=== PATIENT | female | born 1955 | race American Indian/Alaskan Native ===

== ENCOUNTER 2018-09-05 12:00 | Inpatient (IN) | payer MEDICARE, MEDICAID ==
[2018-08-30 10:15] LABS: EOSINOPHILS # (AUTO) 0.3 X10'3 (0-0.9); LYMPHOCYTES # (AUTO) 2.5 X10'3 (1.1-4.8); MEAN CORPUSCULAR VOLUME 88.8 FL (78-98); MONOCYTES # (AUTO) 1.1 X10'3 (0-0.9); PRE OP HEMOGLOBIN 14.5 g/dL (12.0-16.0)
[2018-08-30 10:16] LABS: BASOPHILS % (AUTO) 0.6 % (0-1); EOSINOPHILS % (AUTO) 3.8 % (0-6); LYMPHOCYTES % (AUTO) 32.5 % (21-51); MEAN CORPUSCULAR HEMOGLOBIN 29.5 PG (27.0-31.0); MEAN CORPUSCULAR HGB CONC 33.2 g/dL (33.0-36.5); MEAN PLATELET VOLUME 8.4 FL (7.4-10.4); MONOCYTES % (AUTO) 13.8 % (2-12); NEUTROPHILS # (AUTO) 3.8 X10'3 (1.8-7.7); NEUTROPHILS % (AUTO) 49.3 % (42-75); PRE OP HEMATOCRIT 43.7 % (35.0-45.0); PRE OP PLATELET COUNT 335 X10'3 (140-440); RED BLOOD COUNT 4.92 X10'6 (4.20-5.60); RED CELL DISTRIBUTION WIDTH 16.1 % (11.5-14.5)
[2018-08-30 10:32] LABS: HEMOGLOBIN A1C 6.3 % (4.5-6.2)
[2018-08-30 10:38] LABS: PRE OP PROTIME 10.2 SECONDS (9.0-12.0)
[2018-08-30 10:47] LABS: ALBUMIN 3.1 G/DL (3.4-5.0); ALBUMIN/GLOBULIN RATIO 0.8 (1.1-1.5); ALKALINE PHOSPHATASE 71 IU/L (46-116); BLOOD UREA NITROGEN 22 MG/DL (7-18); BUN/CREATININE RATIO 26.5 (6.6-38.0); CALCIUM 8.8 MG/DL (8.5-10.1); CHLORIDE 105 MMOL/L (99-107); CREATININE 0.83 MG/DL (0.40-0.90); PRE OP ALT 25 U/L (30-65); PRE OP ANION GAP 9 (8-16); PRE OP AST 19 U/L (10-37); PRE OP BILIRUB, TOTAL 0.4 MG/DL (0.0-1.0); PRE OP GLUCOSE 112 MG/DL (70-104); PRE OP SODIUM 139 MMOL/L (135-145); TOTAL CARBON DIOXIDE 25.3 MMOL/L (24-32); TOTAL PROTEIN 7.2 G/DL (6.4-8.2); eGFR 69 ML/MIN
[2018-09-05] VITALS (20 sets, daily range): BP systolic 104–189; BP diastolic 47–82
[~2018-09-05] VITALS: Ht 160 cm; Wt 162.3 kg
[~2018-09-05 12:00] MED LIST: ALBU18HF2 INH; AMLO10TA PO; ASPI-611 PO; ATOR10TA PO; CALCIUM PO; DOXA2TAB PO; DULA0.75 SQ; FENO145T36 PO; FURO-150 PO; LEVO175T7 PO; OMEP40CA13 PO; PARO40TA PO; PIOG45TA5 PO; TOLT4CAP PO; TRAM100T28 PO; ZOLP10TA5 PO
[2018-09-05] MEDS ORDERED: albuterol 2.5 MG/3 ML nebule NEB ONE (12:45)
[2018-09-05] MEDS: dextrose 5%-normal saline 1,000 ML IV SCH (12:45)
[2018-09-05] MEDS ORDERED: scopolamine 1.5mg patch.TD72 TD ONE (12:45)
[2018-09-05] MEDS ORDERED: vancomycin inj 1,500 MG in normal saline 300ml IV soln IV ONE (12:45)
[2018-09-05] MEDS ORDERED: ringers solution, lacted 1,000 ML IV SCH ×2 (12:45→16:20)
[2018-09-05] MEDS ORDERED: famotidine 20mg tablet PO ONE (12:45)
[2018-09-05] MEDS ORDERED: fentaNYL/PF 50MCG/1 ML 2ML syringe IV ONE (12:47)
[2018-09-05] MEDS ORDERED: MIDAZolam 5mg/ml 2ml vial IV ONE (12:47)
[2018-09-05] MEDS ORDERED: ceFAZolin 1000mg inj ONE (13:39)
[2018-09-05] MEDS ORDERED: gentamicin 40 MG/1 ML inj ONE (13:39)
[2018-09-05] MEDS ORDERED: vancomycin 1,000mg inj ONE (13:39)
[2018-09-05] MEDS ORDERED: iohexol 180mg/ml 20ml inj ONE ×2 (14:10→14:17)
[2018-09-05] MEDS ORDERED: iohexol 240mg/ml 10ml vial ONE (14:17)
[2018-09-05] MEDS ORDERED: iohexol 300 MG/1 ML 50ml polymer ONE (14:17)
[2018-09-05] MEDS: LIDOcaine 1% 30ml preserv. free vial ONE ×2 (15:08→15:15)
[2018-09-05] MEDS ORDERED: proCHLORperazine 10 MG/2 ml inj IV PRN (16:20)
[2018-09-05] MEDS ORDERED: morphine 4 MG/ML inj SYRINge IV PRN ×2 (16:20)
[2018-09-05] MEDS ORDERED: ondansetron/PF 4mg/2ml inj IV PRN ×2 (16:20→17:30)
--- NOTE | 2018-09-05 17:00 | NUR ---
Received from OR via [facility] , accompanied by Anesthesiologist DR. RM and report given by Anesthesiolgist. DRSG TO LEFT CHEST CDI. PT ALERT AND ORIENTED, DENIES PAIN AND NAUSEA.
--- NOTE | 2018-09-05 17:10 | NUR ---
Received from OR via [facility] , accompanied by Anesthesiologist DR. DEAL and report given by Anesthesiolgist. ART LINE TO LEFT WRIST. PIV TO RIGHT A/C PATENT. NIPRIDE AND JAYLEN GTTS INFUSING ORDERED. DRSG TO LEFT NECK CDI W/ THANH DRAIN PRESENT. SCANT AMOUNT OF SANG DRAINAGE NOTED IN BULB. PT ALERT AND ORIENTED. NEURO CHECKS WNL. QA AUTOMATION ENGINEER EQUAL. PT DENIES PAIN AND NAUSEA. SCD'S ON. Addendum: 09/05/18 at 1928 by Heather Boyer RN OMIT , WRONG PATIENT.
--- NOTE | 2018-09-05 17:40 | NUR ---
PT READY FOR [facility] TO [facility] BUT WILL WAIT UNTIL AFTER SHIFT CHANGE TO TAKE PT TO FLOOR.
--- NOTE | 2018-09-05 19:00 | NUR ---
PT TO [facility]IA [facility]. NO BELONGINGS W/ PT. REPORT GIVEN TO [facility] RN WHO ASSUMED CARE OF PT UPON TRANSFER. BED LOW, LOCKED, RAILS UP X 2. PT ORIENTED TO ROOM AND CALL LIGHT. PT STATES HER PACER SITE IS SORE BUT REFUSED PAIN MEDICATION UNTIL AFTER SHE EATS. STATES PAIN IS TOLERABLE AND DENIES NAUSEA. DRSG TO LEFT CHEST REMAINS CDI. PT TOLERATING [place] OF [place]. HEP LOCKED IV PER MD ORDERS. PT VOIDED IN PACU X 1.
[2018-09-05] MEDS ORDERED: albuterol 2.5 MG/3 ML nebule NEB PRN (19:15)
[2018-09-05] MEDS ORDERED: traMADol 50MG tablet PO PRN (19:15)
[2018-09-05] MEDS ORDERED: zolpidem 5mg tablet PO PRN (19:15)
[2018-09-05] MEDS: calcium carbonate 500mg tablet PO SCH (20:23)
[2018-09-05] MEDS: acetaminophen w/codeine (30MG) #3 tablet PO PRN (20:29)
[2018-09-05] MEDS ORDERED: doxazosin mesylate 2mg tablet PO SCH (21:00)
[2018-09-05] MEDS ORDERED: PARoxetine 20mg tablet PO SCH (21:00)
[2018-09-05] MEDS ORDERED: atorvastatin 10mg tablet PO SCH (21:00)
[2018-09-05] MEDS ORDERED: fenofibrate 145mg tablet PO SCH (21:00)
[2018-09-06] VITALS: BP 168/67
[2018-09-06] MEDS: acetaminophen w/codeine (30MG) #3 tablet PO PRN ×2 (01:16→08:04)
[2018-09-06 02:00] VITALS: BP 128/37
[2018-09-06] MEDS: dextrose 5%-normal saline 1,000 ML IV SCH (02:05)
[2018-09-06 06:00] VITALS: BP 159/54
[2018-09-06] MEDS ORDERED: vancomycin/NS 1 GM ADD-VANTAGE 250 ML X 1 DOSE IV ONE (06:00)
--- NOTE | 2018-09-06 06:01 | NUR ---
Problems reprioritized. Patient report given, questions answered & plan of care reviewed with Steve ANGEL.
[2018-09-06] MEDS ORDERED: levoTHYROXINE 175mcg tablet PO SCH (07:00)
[2018-09-06] MEDS: calcium carbonate 500mg tablet PO SCH (07:25)
[2018-09-06] MEDS ORDERED: pantoprazole 40mg Tablet.DR PO SCH (07:30)
[2018-09-06] MEDS ORDERED: PARoxetine 20mg tablet PO SCH (08:00)
[2018-09-06] MEDS ORDERED: pioglitazone 45mg tablet PO SCH (08:00)
[2018-09-06] MEDS ORDERED: furosemide 20MG tablet PO SCH (08:00)
[2018-09-06] MEDS ORDERED: amLODIPine 5mg tablet PO SCH (08:00)
[2018-09-06] MEDS ORDERED: tolterodine 2mg SR capsule (24hr) PO SCH (08:00)
[2018-09-06] MEDS ORDERED: aspirin 81mg tab.chew PO SCH (08:30)
--- NOTE | 2018-09-06 10:05 | NUR ---
d/c education provided including all follow up and medications; all questions answered. pt removed from cardiac monitoring and IV removed; IV intact. pt wheeled downstairs with all belongings.
[2018-09-07] MEDS ORDERED: LEVO750T21 PO (02:11)
[2018-09-10] MEDS ORDERED: DULAGLUTIDE SQ SCH (09:00)
== END 2018-09-06 10:05 | disposition home or self-care (01) | DRG 261 ==
LOC: PAS IN 12:00 → EDSTATUS 14:45 → MED 3N 18:50
PROVIDERS: ADMIT Specialist; ATTEND Specialist
PROC: 0JWT0PZ Revision of Cardiac Rhythm Related Device in Trunk Subcutaneous Tissue and Fascia, Open Approach (ICD-10-PCS; 2018-09-05)
PROC: 02H63JZ Insertion of Pacemaker Lead into Right Atrium, Percutaneous Approach (ICD-10-PCS; 2018-09-05)
PROC: 02HK3JZ Insertion of Pacemaker Lead into Right Ventricle, Percutaneous Approach (ICD-10-PCS; 2018-09-05)
PROC: 02PA3MZ Removal of Cardiac Lead from Heart, Percutaneous Approach (ICD-10-PCS; principal; 2018-09-05 14:10)
DX: T82.110A Breakdown (mechanical) of cardiac electrode, initial encounter (principal); Z68.44 Body mass index [BMI] 60.0-69.9, adult; I49.5 Sick sinus syndrome; G47.33 Obstructive sleep apnea (adult) (pediatric); J45.909 Unspecified asthma, uncomplicated; F32.9 Major depressive disorder, single episode, unspecified; F41.9 Anxiety disorder, unspecified; E66.01 Morbid (severe) obesity due to excess calories; K21.9 Gastro-esophageal reflux disease without esophagitis; E11.9 Type 2 diabetes mellitus without complications; I10 Essential (primary) hypertension; F17.210 Nicotine dependence, cigarettes, uncomplicated; E03.9 Hypothyroidism, unspecified; Y83.8 Other surgical procedures as the cause of abnormal reaction of the patient, or of later complication, without mention of misadventure at the time of the procedure; Z79.4 Long term (current) use of insulin; Z79.899 Other long term (current) drug therapy; Z79.890 Hormone replacement therapy; Z79.82 Long term (current) use of aspirin; Z88.0 Allergy status to penicillin; Z88.2 Allergy status to sulfonamides; Z88.8 Allergy status to other drugs, medicaments and biological substances; Z90.49 Acquired absence of other specified parts of digestive tract; Z98.84 Bariatric surgery status; Y92.89 Other specified places as the place of occurrence of the external cause
CPT/HCPCS: 36415; 71045; 71048; 76000; 80053; 82948; 83036; 84443; 85025; 85610; 85730; 87070; 87075; 87077; 87081; 87186; 94760; A4215; A4615; A6402; A6449; A7000; C1900; G0378; J0690; J1580; J2001; J2250; J3010; J3370; J7042; J7050; J7120; Q9965; Q9966; Q9967

== ENCOUNTER 2018-09-06 22:08 | Emergency (ER) | payer MEDICARE, MEDICAID ==
[~2018-09-06] VITALS: Ht 160 cm; Wt 156.0 kg
[2018-09-06] MEDS ORDERED: vancomycin/NS 1 GM ADD-VANTAGE 250 ML IV ONE (22:25)
[2018-09-06] MEDS ORDERED: CefTRIAXone 2gm/D5W 50ml 50 ML IV ONE (22:25)
[2018-09-06] MEDS ORDERED: normal saline 1000ML IV soln IV ONE (22:25)
[2018-09-06] MEDS ORDERED: acetaminophen 325mg tablet PO ONE (22:25)
[2018-09-06] MEDS ORDERED: traMADol 50MG tablet PO ONE (23:05)
[2018-09-06 23:11] LABS: BASOPHILS % (AUTO) 0.3 % (0-1); EOSINOPHILS # (AUTO) 0.1 X10'3 (0-0.9); EOSINOPHILS % (AUTO) 0.7 % (0-6); HEMOGLOBIN 12.7 g/dl (12.0-16.0); LYMPHOCYTES # (AUTO) 1.1 X10'3 (1.1-4.8); LYMPHOCYTES % (AUTO) 9.6 % (21-51); MEAN CORPUSCULAR HEMOGLOBIN 28.9 PG (27.0-31.0); MEAN CORPUSCULAR HGB CONC 32.6 g/dL (33.0-36.5); MEAN CORPUSCULAR VOLUME 88.6 FL (78-98); MEAN PLATELET VOLUME 8.4 FL (7.4-10.4); MONOCYTES # (AUTO) 1.1 X10'3 (0-0.9); MONOCYTES % (AUTO) 9.3 % (2-12); NEUTROPHILS # (AUTO) 9.5 X10'3 (1.8-7.7); NEUTROPHILS % (AUTO) 80.1 % (42-75); PLATELET COUNT 301 X10'3 (140-440); RED CELL DISTRIBUTION WIDTH 15.9 % (11.5-14.5); WHITE BLOOD COUNT 11.8 X10'3 (4.5-11.0)
[2018-09-06 23:18] LABS: PARTIAL THROMBOPLASTIN TIME 31 SECONDS (22-32)
[2018-09-06 23:21] LABS: ALANINE AMINOTRANSFERASE 24 U/L (12-78); ALBUMIN 2.9 G/DL (3.4-5.0); ALBUMIN/GLOBULIN RATIO 0.8 (1.1-1.5); ALKALINE PHOSPHATASE 65 IU/L (46-116); ANION GAP 10 (8-16); ASPARTATE AMINO TRANSFERASE 29 U/L (10-37); BILIRUBIN,TOTAL 0.6 MG/DL (0.1-1.0); BLOOD UREA NITROGEN 14 MG/DL (7-18); BUN/CREATININE RATIO 18.2 (6.6-38.0); CALCIUM 8.3 MG/DL (8.5-10.1); CHLORIDE 104 MMOL/L (99-107); CREATININE 0.77 MG/DL (0.40-0.90); GLUCOSE 155 MG/DL (70-104); MAGNESIUM 1.5 MG/DL (1.5-2.4); POTASSIUM 3.6 MMOL/L (3.5-5.1); SODIUM 137 MMOL/L (135-145); TOTAL CARBON DIOXIDE 23.1 MMOL/L (24-32); TOTAL PROTEIN 6.7 G/DL (6.4-8.2); eGFR 76 ML/MIN
[2018-09-06 23:22] LABS: CLARITY,URINE CLEAR (Clear); COLOR,URINE YELLOW (Yellow); GLUCOSE, URINE NEGATIVE (Neg); KETONES,URINE NEGATIVE (Neg); LEUKOCYTE ESTERASE ,URINE NEGATIVE (Neg); NITRITES, URINE NEGATIVE (Neg); OCCULT BLOOD,URINE NEGATIVE (Neg); PROTEIN,URINE NEGATIVE (Neg); UA COLLECTION TYPE STRAIGHT CATH
[2018-09-07 01:37] LABS: TROPONIN I 1.57 NG/ML (0.0-0.05)
[2018-09-07] MEDS ORDERED: LEVO750T21 PO (02:11)
[2018-09-07 02:36] VITALS: BP 146/65
== END 2018-09-07 02:39 | disposition home or self-care (01) ==
LOC: ER 22:09
DX: I97.89 Other postprocedural complications and disorders of the circulatory system, not elsewhere classified (principal); R50.81 Fever presenting with conditions classified elsewhere; R11.2 Nausea with vomiting, unspecified; I10 Essential (primary) hypertension; E11.9 Type 2 diabetes mellitus without complications; G89.29 Other chronic pain; Z98.890 Other specified postprocedural states; Z88.0 Allergy status to penicillin; Z88.2 Allergy status to sulfonamides; Z88.6 Allergy status to analgesic agent; Z79.82 Long term (current) use of aspirin; Z79.2 Long term (current) use of antibiotics; Z79.899 Other long term (current) drug therapy
CPT/HCPCS: 36415; 71045; 80053; 81003; 83605; 83735; 84145; 84484; 85025; 85610; 85730; 87040; 87502; 87503; 93005; 96365; 96366; 96368; 99284; J0696; J3370; J7030; P9612

== ENCOUNTER 2018-09-10 11:23 | Emergency (ER) | payer MEDICARE, MEDICAID ==
[~2018-09-10] VITALS: Ht 160 cm; Wt 156.8 kg
[~2018-09-10 11:23] MED LIST changes: +LEVO750T21 PO
[2018-09-10 12:36] LABS: BASOPHILS # (AUTO) 0.1 X10'3 (0-0.2); BASOPHILS % (AUTO) 0.7 % (0-1); EOSINOPHILS # (AUTO) 0.4 X10'3 (0-0.9); EOSINOPHILS % (AUTO) 4.5 % (0-6); HEMATOCRIT 35.9 % (35.0-45.0); HEMOGLOBIN 11.8 g/dl (12.0-16.0); LYMPHOCYTES # (AUTO) 2.2 X10'3 (1.1-4.8); LYMPHOCYTES % (AUTO) 26.9 % (21-51); MEAN CORPUSCULAR HEMOGLOBIN 29.2 PG (27.0-31.0); MEAN CORPUSCULAR HGB CONC 32.9 g/dL (33.0-36.5); MEAN CORPUSCULAR VOLUME 88.6 FL (78-98); MEAN PLATELET VOLUME 8.2 FL (7.4-10.4); MONOCYTES % (AUTO) 12.2 % (2-12); NEUTROPHILS # (AUTO) 4.6 X10'3 (1.8-7.7); NEUTROPHILS % (AUTO) 55.7 % (42-75); PLATELET COUNT 314 X10'3 (140-440); RED BLOOD COUNT 4.05 X10'6 (4.20-5.60); RED CELL DISTRIBUTION WIDTH 15.9 % (11.5-14.5); WHITE BLOOD COUNT 8.2 X10'3 (4.5-11.0)
[2018-09-10 12:49] LABS: ALANINE AMINOTRANSFERASE 25 U/L (12-78); ALBUMIN 2.2 G/DL (3.4-5.0); ALBUMIN/GLOBULIN RATIO 0.6 (1.1-1.5); ALKALINE PHOSPHATASE 58 IU/L (46-116); ANION GAP 9 (8-16); ASPARTATE AMINO TRANSFERASE 30 U/L (10-37); BILIRUBIN,TOTAL 0.6 MG/DL (0.1-1.0); BLOOD UREA NITROGEN 14 MG/DL (7-18); BUN/CREATININE RATIO 16.3 (6.6-38.0); CALCIUM 8.4 MG/DL (8.5-10.1); CHLORIDE 110 MMOL/L (99-107); CREATININE 0.86 MG/DL (0.40-0.90); GLUCOSE 143 MG/DL (70-104); POTASSIUM 3.5 MMOL/L (3.5-5.1); SODIUM 144 MMOL/L (135-145); TOTAL CARBON DIOXIDE 25.3 MMOL/L (24-32); TOTAL PROTEIN 6.2 G/DL (6.4-8.2); eGFR 66 ML/MIN
[2018-09-10 12:57] LABS: MAGNESIUM 1.8 MG/DL (1.5-2.4)
--- NOTE | 2018-09-10 13:16 | NUR ---
Interrogated pt's pacemaker at 1315.
--- NOTE | 2018-09-10 13:45 | NUR ---
NOTIFY BARRERA WASHINGTON THAT PT AMBULATED TO RESTROOM WITH INTERN BRAND PT SAT STAYED 90%.CHECKED PT LFT RADIAL PULSE 72 AFTER PT CAME BACK FROM RESTROOM .NO NEW ORDERS YET.
[2018-09-10 13:51] LABS: URINE HCG NEGATIVE (NEG)
[2018-09-10 13:53] LABS: CLARITY,URINE SLIGHTLY CLOUDY (Clear); COLOR,URINE AMBER (Yellow); GLUCOSE, URINE NEGATIVE (Neg); KETONES,URINE TRACE mg/dl (Neg); LEUKOCYTE ESTERASE ,URINE NEGATIVE (Neg); NITRITES, URINE NEGATIVE (Neg); OCCULT BLOOD,URINE NEGATIVE (Neg); PROTEIN,URINE TRACE mg/dl (Neg)
[2018-09-10] MEDS ORDERED: ipratropium/albuterol 3ml nebule NEB ONE (13:55)
[2018-09-10 13:58] LABS: UA COLLECTION TYPE CLN CATCH MIDSTREAM
[2018-09-10 14:00] LABS: BACTERIA,URINE FEW /HPF (Neg); HYALINE CASTS 0-3 /LPF (NEGATIVE); MUCUS STRANDS MANY /LPF (Neg); RBC,URINE NONE SEEN /HPF (0-2); RENAL CELLS, URINE FEW /HPF; SQUAMOUS EPITHELIAL CELL,UR MODERATE /LPF (FEW); WBC,URINE 0-4 /HPF (0-4)
--- NOTE | 2018-09-10 14:33 | NUR ---
RT IN ROOM GIVING BREATHING TREATMENT.FAMILY AT BEDSIDE.
--- NOTE | 2018-09-10 14:37 | NUR ---
RT INFORMED THAT PT GET SOB WITH EXERTION BUT RT SHARIF SHE IS FINE .
--- NOTE | 2018-09-10 15:12 | NUR ---
NOTIFY BARRERA WASHINGTON REGARDING PT BP CHECKED TWICE IT WAS [phone], PER FELIX ITS NOT EMERGENCY PT CAN GO TO PCP AND DR CALI OFFICE FOR BP TOMM.TAKE HOME MED AMILODIPINE.NOTIFIED THE FAMILY AT BEDSIDE,PT FAMILY WAS UPSET WANT TO TALK TO CHARGE INFORMED CHARGE NURSE BRANDIE ,TALKING TO FAMILY.
[2018-09-10 15:19] VITALS: BP 189/84
== END 2018-09-10 15:34 | disposition home or self-care (01) ==
LOC: ER 11:23
DX: R06.02 Shortness of breath (principal); I10 Essential (primary) hypertension; J44.9 Chronic obstructive pulmonary disease, unspecified; E11.9 Type 2 diabetes mellitus without complications; G89.29 Other chronic pain; Z98.890 Other specified postprocedural states; Z95.0 Presence of cardiac pacemaker; Z88.0 Allergy status to penicillin; Z88.2 Allergy status to sulfonamides; Z88.6 Allergy status to analgesic agent; Z88.8 Allergy status to other drugs, medicaments and biological substances; Z79.82 Long term (current) use of aspirin; Z79.2 Long term (current) use of antibiotics; Z79.899 Other long term (current) drug therapy
CPT/HCPCS: 36415; 71045; 80053; 81001; 81025; 83605; 83735; 83880; 84145; 84484; 85025; 87040; 93005; 94640; 99284

== ENCOUNTER 2018-09-13 22:56 | Emergency (ER) | payer MEDICARE, MEDICAID ==
[~2018-09-13] VITALS: Ht 160 cm; Wt 154.0 kg
[2018-09-13 23:04] VITALS: BP 152/68
[2018-09-13] MEDS ORDERED: vancomycin/NS 1 GM ADD-VANTAGE 250 ML IV ONE (23:45)
== END 2018-09-14 02:15 | disposition home or self-care (01) ==
LOC: ER 22:56
DX: I97.621 Postprocedural hematoma of a circulatory system organ or structure following other procedure (principal); I10 Essential (primary) hypertension; J44.9 Chronic obstructive pulmonary disease, unspecified; G47.30 Sleep apnea, unspecified; E11.9 Type 2 diabetes mellitus without complications; G89.29 Other chronic pain; E66.01 Morbid (severe) obesity due to excess calories; Z98.890 Other specified postprocedural states; Z88.0 Allergy status to penicillin; Z88.2 Allergy status to sulfonamides; Z88.6 Allergy status to analgesic agent; Z79.82 Long term (current) use of aspirin; Z79.899 Other long term (current) drug therapy
CPT/HCPCS: 96365; 96366; 99283; J3370

== ENCOUNTER 2018-11-04 11:02 | Emergency (ER) | payer MEDICARE, MEDICAID ==
[~2018-11-04] VITALS: Ht 160 cm; Wt 132.5 kg
[~2018-11-04 11:02] MED LIST changes: -LEVO750T21 PO
[2018-11-04 13:23] VITALS: BP 187/89
[2018-11-04 13:33] LABS: BASOPHILS # (AUTO) 0.1 X10'3 (0-0.2); EOSINOPHILS # (AUTO) 0.4 X10'3 (0-0.9); HEMATOCRIT 40.4 % (35.0-45.0); HEMOGLOBIN 13.4 g/dl (12.0-16.0); LYMPHOCYTES # (AUTO) 2.3 X10'3 (1.1-4.8); MEAN CORPUSCULAR HGB CONC 33.2 g/dL (33.0-36.5); MEAN PLATELET VOLUME 8.3 FL (7.4-10.4); NEUTROPHILS # (AUTO) 2.9 X10'3 (1.8-7.7); PLATELET COUNT 298 X10'3 (140-440)
[2018-11-04 13:35] LABS: BASOPHILS % (AUTO) 0.8 % (0-1); EOSINOPHILS % (AUTO) 6.5 % (0-6); LYMPHOCYTES % (AUTO) 35.2 % (21-51); MEAN CORPUSCULAR HEMOGLOBIN 29.6 PG (27.0-31.0); MEAN CORPUSCULAR VOLUME 89.2 FL (78-98); MONOCYTES # (AUTO) 0.8 X10'3 (0-0.9); NEUTROPHILS % (AUTO) 44.5 % (42-75); RED BLOOD COUNT 4.53 X10'6 (4.20-5.60); RED CELL DISTRIBUTION WIDTH 15.9 % (11.5-14.5); WHITE BLOOD COUNT 6.5 X10'3 (4.5-11.0)
[2018-11-04 13:45] LABS: ALANINE AMINOTRANSFERASE 20 U/L (12-78); ALBUMIN 2.9 G/DL (3.4-5.0); ALBUMIN/GLOBULIN RATIO 0.8 (1.1-1.5); ALKALINE PHOSPHATASE 65 IU/L (46-116); ANION GAP 7 (8-16); ASPARTATE AMINO TRANSFERASE 17 U/L (10-37); BILIRUBIN,TOTAL 0.3 MG/DL (0.1-1.0); BLOOD UREA NITROGEN 17 MG/DL (7-18); BUN/CREATININE RATIO 26.2 (6.6-38.0); CALCIUM 8.4 MG/DL (8.5-10.1); CHLORIDE 108 MMOL/L (99-107); CREATININE 0.65 MG/DL (0.40-0.90); GLUCOSE 113 MG/DL (70-104); POTASSIUM 3.8 MMOL/L (3.5-5.1); SODIUM 142 MMOL/L (135-145); TOTAL CARBON DIOXIDE 27.3 MMOL/L (24-32); TOTAL PROTEIN 6.5 G/DL (6.4-8.2); eGFR > 90 ML/MIN
[2018-11-04] MEDS ORDERED: DOXY100C43 PO (14:05)
== END 2018-11-04 14:19 | disposition home or self-care (01) ==
LOC: ER 11:03
DX: L03.313 Cellulitis of chest wall (principal); I10 Essential (primary) hypertension; J44.9 Chronic obstructive pulmonary disease, unspecified; G47.30 Sleep apnea, unspecified; E11.9 Type 2 diabetes mellitus without complications; G89.29 Other chronic pain; Z95.0 Presence of cardiac pacemaker; Z98.890 Other specified postprocedural states; Z88.0 Allergy status to penicillin; Z88.2 Allergy status to sulfonamides; Z88.8 Allergy status to other drugs, medicaments and biological substances; Z79.82 Long term (current) use of aspirin; Z79.899 Other long term (current) drug therapy
CPT/HCPCS: 80053; 84145; 85025; 99283